=== PATIENT | male | born 1965 | race Caucasian/White ===

== ENCOUNTER → 2020-01-09 09:44 | Outpatient (CLI) | payer BC, SELFPAY ==
[2019-12-04 08:14] VITALS: BMI 30.2
--- NOTE | 2020-01-09 09:47 | ECHOD_ITS ---
Reason For Study: CHEST PAIN Procedure This was a 2D Doppler, Color Flow transthoracic echocardiogram. Exam performed in department. Left Ventricle Normal size and thickness. Mid cavitary false tendon noted. The estimated ejection fraction is 65 %. Stage 1 diastolic dysfunction. No regional wall motion abnormalities noted. Right Ventricle Normal size and thickness. Normal systolic function. Atria Normal left atrium. Normal right atrium. Normal atrial septum. Mitral Valve The mitral valve is structurally normal. No prolapse or stenosis seen. Tricuspid Valve Normal tricuspid valve. Trivial tricuspid valve insufficiency. Right ventricular systolic pressure estimated to be 28 mmHg. Aortic Valve Normal aortic valve. Trisinus/trileaflet aortic valve. Pulmonic Valve Normal pulmonic valve. Great Vessels Normal aortic root. Normal arch. Normal inferior vena cava. Inferior vena cava collapse with sniff. Pericardium/Pleural No pericardial effusion. MMode/2D Measurements & Calculations LVIDd: 4.0 cm IVSd: 0.97 cm Ao root diam: 3.4 cm LVIDs: 2.7 cm LVPWd: 1.1 cm RVDd: 3.1 cm FS: 31.2 % LAV(MOD-bp): 36.3 ml LVAd ap4: 38.8 cm2 SV(MOD-sp4): 85.1 ml LAV(MOD-bp) Indexed: 16.9 ml/m2 EDV(MOD-sp4): 139.1 ml LAV(MOD-sp2): 40.4 ml EDV(sp4-el): 144.0 ml LAV(MOD-sp4): 28.3 ml LVAs ap4: 21.8 cm2 ESV(MOD-sp4): 54.0 ml ESV(sp4-el): 52.8 ml EF(MOD-sp4): 61.2 % EF(sp4-el): 63.3 % SV(sp4-el): 91.2 ml LA A4 area: 12.7 cm2 LA dimension(2D): 3.1 cm RA A4 area: 13.6 cm2 Time Measurements MV dec time: 0.22 sec Doppler Measurements & Calculations MV E max jorge: 60.9 cm/sec Lat Peak E' Jorge: 9.6 cm/sec Med Peak E' Jorge: 8.4 cm/sec MV A max jorge: 73.8 cm/sec E/E' lat: 6.3 E/E' med: 7.2 MV E/A: 0.82 Ao V2 max: 95.7 cm/sec LV V1 max: 94.8 cm/sec PA V2 max: 86.3 cm/sec Ao max P.7 mmHg LV V1 max P.6 mmHg TR max jorge: 237.3 cm/sec TR max P.5 mmHg Interpretation Summary The estimated ejection fraction is 65 %. Stage 1 diastolic dysfunction. Trivial tricuspid valve insufficiency. Right ventricular systolic pressure estimated to be 28 mmHg. There is no comparison study available. Ordering Physician: Bisi Doty Referring Physician: Bisi Doty Performed By: Pepper Waller RDCS
== END ==
LOC: CVS 09:47
PROVIDERS: PCP Nurse Practitioner; Referring Provider Nurse Practitioner; Visit Provider Nurse Practitioner
DX: I25.119 Atherosclerotic heart disease of native coronary artery with unspecified angina pectoris (principal); R06.02 Shortness of breath
CPT/HCPCS: 93306